=== PATIENT | female | born 1995 | race African-American/Black ===

== ENCOUNTER 2018-12-27 17:30 | Emergency (ER) | payer SELFPAY ==
[~2018-12-27] VITALS: Ht 162.6 cm; Wt 64.4 kg
--- OUTSIDE RECORDS SUMMARY | 2018-12-27 17:33 | XMS REPORT | Clinical Summary ---
Author Author [facility] Address Unknown Phone Unavailable Care Team Providers Care Director Speech Language Name Role Phone System, Provider Not In PCP Unavailable Allergies No Known Allergies Medications End Date Status Medication Sig Dispensed Refills Start Date Active sucralfate (CARAFATE) 1 Take 1 g by 0 gram tablet mouth 4 (four) times daily. Active famotidine (PEPCID) 20 MG Take 20 mg by 0 tablet mouth 2 (two) times daily. 12/26/2018 Discontinued metroNIDAZOLE (FLAGYL) Take 250 mg 0 250 MG tablet by mouth 3 (three) times daily. Active Problems Not on file Encounters Care Team Description Date Type Specialty Anxiety (Primary Dx); History of gastroesophageal reflux (GERD) 12/26/2018 Emergency Emergency Medicine 12/26/2018 Travel after 12/26/2017 Family History Medical History Relation Name Comments No Known Problem Father No Known Problem Mother Relation Name Status Comments Father Mother Social History Date Tobacco Use Types Packs/Day Years Used Passive Smoke Exposure - Never Smoker Smokeless Tobacco: Never Used Alcohol Use Drinks/Week oz/Week Comments No Sex Assigned at Date Recorded Not on file Industry Job Start Date Occupation Not on file Not on file Not on file Travel End Travel History Travel Start No recent travel history available. Last Filed Vital Signs Time Taken Vital Sign Reading 12/26/2018 6:40 PM CDT Blood Pressure 132/83 12/26/2018 6:40 PM CDT Pulse 79 12/26/2018 6:40 PM CDT Temperature 36.5 C (97.7 F) 12/26/2018 6:40 PM CDT Respiratory Rate 18 12/26/2018 6:40 PM CDT Oxygen Saturation 100% - Inhaled Oxygen - Concentration 12/26/2018 6:40 PM CDT Weight 64.4 kg (142 lb) 12/26/2018 6:40 PM CDT Height 134.6 cm (4' 5") 12/26/2018 6:40 PM CDT Body Mass Index 35.54 Plan of Treatment Not on file Procedures Comments Procedure Name Priority Date/Time Associated Diagnosis ECG 12-LEAD STAT 12/26/2018 6:45 PM CDT after 12/26/2017 Results * ECG 12 lead (12/26/2018 6:45 PM CDT) Narrative Performed At Ventricular Rate 70 BPM GE MUSE Atrial Rate 70 BPM P-R Interval 176 ms QRS Duration 88 ms Q-T Interval 400 ms QTC Calculation(Bazett) 432 ms P [place] 33 degrees R [place] 67 degrees T [place] 29 degrees Normal sinus rhythm with sinus arrhythmia Minimal voltage criteria for LVH, may be normal variant Nonspecific T wave abnormalityanterior leads Abnormal ECG No previous ECGs available Confirmed by MD BURGESS YOCHAI ([id number]) on 12/27/2018 5:08:48 AM Procedure Note Interface, External Ris In - 12/27/2018 5:08 AM CDT Ventricular Rate 70 BPM Atrial Rate 70 BPM P-R Interval 176 ms QRS Duration 88 ms Q-T Interval 400 ms QTC Calculation(Bazett) 432 ms P [place] 33 degrees R [place] 67 degrees T [place] 29 degrees Normal sinus rhythm with sinus arrhythmia Minimal voltage criteria for LVH, may be normal variant Nonspecific T wave abnormality anterior leads Abnormal ECG No previous ECGs available Confirmed by MD BURGESS YOCHAI ([id number]) on 12/27/2018 5:08:48 AM Performing Organization Address City/State/Zipcode Phone Number [place] MUSE after 12/26/2017 Insurance Payer Benefit Subscriber ID Type Phone Address Plan / Group MEDICAID - MEDICAID [place] MEDICAID xxxxxxxxx Medicaid [employer] Non-Contra cted Guarantor Name Account Relation to Date of Phone Billing Address Type Patient ANNABELLE BOYD Personal/F Grandmother [phone] [id number] (Home) [place] [address]
--- OUTSIDE RECORDS SUMMARY | 2018-12-27 17:33 | XMS REPORT ---
Author Author [facility] Address Unknown Phone Unavailable Care Team Providers Care Crystalizer Name Role Phone Unavailable Unavailable Problems This patient has no known problems. Allergies, Adverse Reactions, Alerts This patient has no known allergies or adverse reactions. Medications This patient has no known medications.
[2018-12-27] MEDS ORDERED: ALPRAZOLAM 0.5 MG TAB PO ONE (18:15)
--- NOTE | 2018-12-27 18:47 | NUR ---
REPORT TO ROSI NICOLAS ALL QUESTIONS ANSWERED
--- NOTE | 2018-12-27 18:50 | NUR ---
Assumed care of pt. Pt is resting in bed and has no needs at this time and is in NAD, REU
[2018-12-27] MEDS ORDERED: ALPRAZOLAM0.5 MG PO (19:00)
[2018-12-27 19:50] VITALS: BP 138/86
== END 2018-12-27 19:00 | disposition home or self-care (01) ==
LOC: FSED 17:30
DX: F41.1 Generalized anxiety disorder (principal); K21.0 Gastro-esophageal reflux disease with esophagitis
CPT/HCPCS: 99283

== ENCOUNTER 2019-11-18 05:21 | Emergency (ER) | payer SELFPAY ==
[~2019-11-18] VITALS: Ht 172.7 cm; Wt 86.2 kg
[~2019-11-18 05:21] MED LIST: ALPRAZOLAM0.5 MG PO
[2019-11-18] MEDS ORDERED: KETOROLAC TROMETHAMINE 30 MG/ML VIAL IV STA (05:44)
[2019-11-18] MEDS ORDERED: FAMOTIDINE 20 MG/2 ML VIAL IV STA (05:44)
[2019-11-18] MEDS ORDERED: ONDANSETRON HCL INJ 2MG/ML 2ML 2 MG/ML VIAL IV STA (05:44)
--- NOTE | 2019-11-18 06:38 | Diagnostic Imaging Report ---
EXAM: CT Abdomen and Pelvis WITHOUT contrast INDICATION: Abdominal pain, nausea and vomiting. COMPARISON: None. TECHNIQUE: Abdomen and pelvis were scanned utilizing a multidetector helical scanner from the lung base to the pubic symphysis without administration of IV contrast. Absence of intravenous contrast decreases sensitivity for detection of focal lesions and vascular pathology. Coronal and sagittal reformations were obtained. Renal stone protocol was performed. IV CONTRAST: None. ORAL CONTRAST: Water RADIATION DOSE: Total DLP: 477.81 mGy*cm Estimated effective dose: (DLP x 0.015 x size factor) mSv COMPLICATIONS: None FINDINGS: LINES and TUBES: None. LOWER THORAX: Unremarkable HEPATOBILIARY: No focal hepatic lesions. No biliary ductal dilation. GALLBLADDER: No radio-opaque stones or sludge. No wall thickening. SPLEEN: No splenomegaly. PANCREAS: No focal masses or ductal dilatation. ADRENALS: No adrenal nodules KIDNEYS/URETERS: No hydronephrosis. No cystic or solid mass lesions. Punctate hyperdensity in the renal papilla bilaterally suggestive of Alex plaques in/or punctate renal calculi. GI TRACT: No abnormal distention, wall thickening, or evidence of bowel obstruction. Appendix is normal. PELVIC ORGANS/BLADDER: Unremarkable. LYMPH NODES: No lymphadenopathy. VESSELS: Unremarkable. PERITONEUM / RETROPERITONEUM: Trace volume of free fluid in the cul-de-sac. BONES: Unremarkable. SOFT TISSUES: Unremarkable. IMPRESSION: 1. Punctate hyperdensity in the renal papilla bilaterally suggestive of Alex plaques and punctate nonobstructing renal calculi. No hydronephrosis. Signed by: Dr. Kentrell Shea M.D. on 11/18/2019 6:35 AM
== END 2019-11-18 07:13 | disposition home or self-care (01) ==
LOC: FSED 05:21
DX: R10.13 Epigastric pain (principal); R11.2 Nausea with vomiting, unspecified
CPT/HCPCS: 74176; 80053; 81003; 81025; 85025; 99283; J1885; J2405

== ENCOUNTER 2020-01-03 23:07 | Emergency (ER) | payer SELFPAY ==
[~2020-01-03] VITALS: Ht 160 cm; Wt 70.3 kg
[2020-01-03] MEDS ORDERED: ONDANSETRON HCL 4 MG ORAL DISINTEGRATING TAB PO ONE (23:30)
[2020-01-03] MEDS ORDERED: ONDANSETRON HCL 4 MG ORAL DISINTEGRATING TAB ONE (23:42)
[2020-01-03] MEDS ORDERED: PROMETHAZINE HCL (IM) 25 MG/ML VIAL IM ONE (23:45)
--- NOTE | 2020-01-03 23:58 | NUR ---
IM TO R-GLUT WITHOUT DIFF. PT TOLERATED WELL
[2020-01-03] MEDS ORDERED: PROMETHAZINE HCL (IM) 25 MG/ML VIAL ONE (23:59)
[2020-01-04 00:20] VITALS: BP 140/74
== END 2020-01-04 00:20 | disposition home or self-care (01) ==
LOC: FSED 23:07
DX: R10.13 Epigastric pain (principal); R11.2 Nausea with vomiting, unspecified
CPT/HCPCS: 80053; 81003; 81025; 85025; 96372; 99283; J2550; Q0162

== ENCOUNTER 2020-04-04 06:35 | Emergency (ER) | payer SELFPAY ==
[~2020-04-04] VITALS: Ht 160 cm; Wt 70.3 kg
[2020-04-04] MEDS ORDERED: SODIUM CHLORIDE 0.9% 1000ML 1,000 ML IV STA (07:16)
--- NOTE | 2020-04-04 07:23 | Emergency Department Note ---
History of Present Illnes History of Present Illness Chief Complaint: Abdominal Complaints History of Present Illness This is a 24 year old female c/o epigastric pain chest pain for years, getting worse for few days, n/v for 2 days. She was here few months ago, given phenergan, feeling better but she has not f/u for definitive care, taking no meds . Arrival Mode: Car Telephone Directory Deliverer Required: No Radiation: Reports non-radiation Onset quality: gradual Duration (how long): month(s) Progression: worsening Relieving factors: none Exacerbating factors: none Treatments prior to arrival: none Previous service: medications given Past Medical/Family History Physician Review I have reviewed the patient's past medical and family history. Any updates have been documented here. Past Medical History Recent Fever: No Clinical Suspicion of Infectio: No New/Unexplained Change in Ment: No Past Medical History: None Past Surgical History: None Social History Smoking Cessation: Never Smoker Alcohol Use: None Any Illegal Drug Use: No TB Exposure/Symptoms: No Physically hurt or threatened: No Family History Family history of heart diseas: No Other Last Tetanus: unlk Review of Systems Review of Systems Constitutional: Reports no symptoms EENTM: Reports no symptoms Cardiovascular: Reports chest pain Respiratory: Reports no symptoms Gastrointestinal: Reports as per HPI, Reports abdominal pain, Reports nausea, Reports vomiting Genitourinary: Reports no symptoms Musculoskeletal: Reports no symptoms Integumentary: Reports no symptoms Neurological: Reports no symptoms Psychological: Reports no symptoms Endocrine: Reports no symptoms Hematological/Lymphatic: Reports no symptoms Physical Exam Related Data Allergies: Coded Allergies: No Known Allergies (Unverified , 12/27/18) Physical Exam CONSTITUTIONAL Constitutional: Present well-developed, Present well-nourished HENT HENT: Present normocephalic, Present atraumatic, Present oropharynx clear/moist, Present nose normal HENT L/R: Present left ext ear normal, Present right ext ear normal EYES Eyes: Reports PERRL, Reports conjunctivae normal NECK Neck: Present ROM normal PULMONARY Pulmonary: Present effort normal, Present breath sounds normal CARDIOVASCULAR Cardiovascular: Present regular rhythm, Present heart sounds normal, Present capillary refill normal, Present normal rate GASTROINTESTINAL Abdominal: Present soft, Present nontender, Present bowel sounds normal GENITOURINARY Genitourinary: Present exam deferred SKIN Skin: Present warm, Present dry MUSCULOSKELETAL Musculoskeletal: Present ROM normal NEUROLOGICAL Neurological: Present alert, Present oriented x 3, Present no gross motor or sensory deficits PSYCHOLOGICAL Psychological: Present mood/affect normal, Present judgement normal Results Laboratory Lab results reviewed: Yes Laboratory comments wnl Imaging Imaging results reviewed: Yes Imaging Comments no acute Diagnostics Tests Diagnostic test(s) reviewed: Yes Procedures 12 Lead ECG Interpretation ECG Interpretation : ECG: ECG 1 Date: Apr 04, 2020 Time: 07:39 Rhythm: sinus rhythm Ectopy: PJC's QRS axis: normal Clinical Impression: normal ECG Assessment & Plan Medical Decision Making MDM 24 yo AAF has epigastric pain for years, getting worse with n/v, probably has hiatal hernia, need GI f/u Assessment & Plan Final Impression: (1) Nausea & vomiting (2) Abdominal pain (3) Chest pain Depart Disposition: HOME, SELF-halfway Meds Active Scripts Promethazine Hcl (PROMETHAZINE HCL) 25 Mg Tablet, 25 MG PO DAILY, #30 TAB Prov:OLI DIAZ MD 04/04/20 Omeprazole (OMEPRAZOLE) 40 Mg Capsule.dr, 1 TAB PO DAILY, #30 Prov:OLI DIAZ MD 04/04/20 Alprazolam (ALPRAZOLAM) 0.5 Mg Tablet, 0.5 MG PO TID PRN for ANXIETY, #20 TAB 0 Refills Prov:FLACO TURCIOS MD 12/27/18 Medications in the ED Famotidine 20 mg ONCE ONCE IV ; Start 04/04/20 at 07:30; Stop 04/04/20 at 07:31; Status UNV Sodium Chloride 1,000 ml @ 0 mls/hr Q0M STAT IV ; Start 04/04/20 at 07:16; Stop 04/04/20 at 07:18; Status DC OLI DIAZ MD Apr 04, 2020 07:23
[2020-04-04] MEDS ORDERED: ONDANSETRON HCL INJ 2MG/ML 2ML 2 MG/ML VIAL IV ONE (07:30)
[2020-04-04] MEDS ORDERED: PROMETHAZINE 25MG/ NS 50ML (IV) IV ONE (07:30)
[2020-04-04] MEDS ORDERED: FAMOTIDINE 20 MG/2 ML VIAL IV ONE (07:30)
[2020-04-04] MEDS ORDERED: SODIUM CHLORIDE 0.9% 1000ML 1,000 ML ONE (07:38)
--- NOTE | 2020-04-04 07:40 | NUR ---
pt in room vomiting at the time meds give, asking for water, explained to patient that she is NPO r/t vomiting.
[2020-04-04] MEDS ORDERED: PROMETHAZINE HC25 M1 PO (07:50)
[2020-04-04] MEDS ORDERED: OMEPRAZOLE40 MG PO (07:50)
--- NOTE | 2020-04-04 08:40 | Diagnostic Imaging Report ---
EXAMINATION: ABDOMEN COMPLETE - HOPD INDICATION: Abdominal pain, chest pain COMPARISON: CT abdomen and pelvis of 11/18/2019 FINDINGS: LINES/TUBES:None LUNGS:The lungs are well-inflated. No focal consolidation or pulmonary edema. PLEURA:No pleural effusion or pneumothorax. MEDIASTINUM:The cardiomediastinal silhouette appears normal in size and shape. BONES/SOFT TISSUES:No acute osseous injury. ABDOMEN:No free air under the diaphragm. Nonobstructive bowel gas pattern. No acute osseous injury. IMPRESSION: No focal pneumonia or pulmonary edema. Nonobstructive bowel gas pattern. No free air. Signed by: Jaelyn Garcia MD on 04/04/2020 8:37 AM
== END 2020-04-04 09:03 | disposition home or self-care (01) ==
LOC: FSED 06:35
DX: R10.13 Epigastric pain (principal); R07.89 Other chest pain; R11.2 Nausea with vomiting, unspecified
CPT/HCPCS: 74022; 80053; 81003; 81025; 82553; 84484; 85025; 96374; 96376; 99284; J2405; J2550; J7030

== ENCOUNTER 2020-09-02 09:57 | Emergency (ER) | payer OTHER ==
[~2020-09-02] VITALS: Ht 167.6 cm; Wt 65.8 kg
[~2020-09-02 09:57] MED LIST changes: +OMEPRAZOLE40 MG PO; +PROMETHAZINE HC25 M1 PO
[2020-09-02] MEDS ORDERED: SODIUM CHLORIDE 0.9% 1000ML 1,000 ML IV STA (10:08)
[2020-09-02] MEDS ORDERED: SODIUM CHLORIDE FLUSH 10 ML SYR INJ PRN (10:15)
[2020-09-02] MEDS ORDERED: LORAZEPAM INJ 2 MG/ML VIAL IV ONE ×2 (10:15→10:30)
[2020-09-02] MEDS ORDERED: LORAZEPAM INJ 2 MG/ML VIAL ONE (10:16)
--- NOTE | 2020-09-02 10:17 | Emergency Department Note ---
History of Present Illnes History of Present Illness Chief Complaint: anxiety attack(cp/sob) History of Present Illness This is a 24 year old female . Historian: Patient Arrival Mode: Car History limited by: condition of the patient (normal) Field Education Coordinator Required: No Onset (how long ago): hour(s) (2) Location: bilateral Quality: tightness Radiation: Reports non-radiation Severity: severe Onset quality: sudden Duration (how long): hour(s) (2) Timing of current episode: constant Progression: worsening Chronicity: recurrent (typical anxiety attack) Context: Denies recent illness, Denies recent surgery, Denies recent immobilization, Denies recent travel, Denies trauma/injury, Denies new medications, Denies hx of DVT/PE, Denies non-compliance w/ medications Relieving factors: none Exacerbating factors: none Associated symptoms: Reports chest pain, Reports shortness of breath Treatments prior to arrival: none Past Medical/Family History Physician Review I have reviewed the patient's past medical and family history. Any updates have been documented here. Past Medical History Recent Fever: No Clinical Suspicion of Infectio: No New/Unexplained Change in Ment: No Past Medical History: Anxiety Past Surgical History: None Social History Smoking Cessation: Never Smoker Counseling Performed: No Alcohol Use: Social Any Illegal Drug Use: No TB Exposure/Symptoms: No Physically hurt or threatened: No Family History Family history of heart diseas: No Other Last Tetanus: unlk Any Pre-Existing Lines (PICC,: No Is patient up to date on immun: No Review of Systems Review of Systems Constitutional: Reports no symptoms EENTM: Reports no symptoms Cardiovascular: Reports as per HPI Respiratory: Reports as per HPI Gastrointestinal: Reports no symptoms Genitourinary: Reports no symptoms Musculoskeletal: Reports no symptoms Integumentary: Reports no symptoms Neurological: Reports as per HPI, Reports numbness, Reports paresthesia Psychological: Reports no symptoms Endocrine: Reports no symptoms Hematological/Lymphatic: Reports no symptoms Review of other systems: All other systems negative Physical Exam Related Data Allergies: Coded Allergies: No Known Allergies (Unverified , 12/27/18) Vital signs reviewed: Yes Physical Exam CONSTITUTIONAL Constitutional: Present well-developed, Present well-nourished, Present other (+anxious) HENT HENT: Present normocephalic, Present atraumatic, Present mucosae dry, Present nose normal HENT L/R: Present left ext ear normal, Present right ext ear normal EYES Eyes: Reports PERRL, Reports conjunctivae normal NECK Neck: Present ROM normal, Present supple PULMONARY Pulmonary: Present effort normal, Present breath sounds normal CARDIOVASCULAR Cardiovascular: Present regular rhythm, Present heart sounds normal, Present capillary refill normal, Present normal rate GASTROINTESTINAL Abdominal: Present soft, Present nontender, Present bowel sounds normal GENITOURINARY Genitourinary: Present exam deferred SKIN Skin: Present warm, Present dry MUSCULOSKELETAL Musculoskeletal: Present ROM normal NEUROLOGICAL Neurological: Present alert, Present oriented x 3, Present no gross motor or sensory deficits PSYCHOLOGICAL Psychological: Present mood/affect normal, Present judgement normal Results Laboratory Lab results reviewed: Yes Laboratory comments cbc/bmp/lft/d-dimer/cardiac enzymes all normal Imaging Imaging results reviewed: Yes Imaging Comments [place] [address] Patient Name: GARRY AU MR #: [id number] : 1995 Age/Sex: 24/F Req #: [id number] Adm Physician: Ordered by: GULSHAN LANGSTON Report #: [id number] [facility] Room/Bed: Procedure: [id number] HOPD/CXR 1 [facility] Exam Date: 09/02/20 Exam Time: 1047 REPORT STATUS: Signed EXAMINATION: CXR 1 [facility] INDICATION: ^cp/sob ^[id number] ^1047 COMPARISON: Chest x-ray on 04/04/2020. FINDINGS: TUBES and LINES: None. LUNGS: Normal lung volumes. Lungs are clear. No consolidations. PLEURA: No pleural effusion or pneumothorax. HEART AND MEDIASTINUM: The cardiomediastinal silhouette is unremarkable. BONES AND SOFT TISSUES: No acute osseous lesion. Soft tissues are unremarkable. UPPER ABDOMEN: No free air under the diaphragm. IMPRESSION: No acute thoracic radiographic abnormality. Signed by: Christian Hutson MD on 09/02/2020 11:15 AM Dictated By: CHRISTIAN HUTSON MD 14 Transcribed By: ARISTEO on 09/02/201114 COPY TO: GULSHAN LANGSTON~ Procedures 12 Lead ECG Interpretation ECG Interpretation : ECG: ECG 1 Field Education Coordinator: Interpreted by ED physician Date: Sep 02, 2020 Time: 10:15 Prior ECG tracings: reviewed Rhythm: sinus rhythm (nsr with sinus arrhytmia) Rate: normal BPM: 90 QRS axis: normal ST segments normal: Yes T waves normal: Yes Clinical Impression: abnormal ECG Critical Care Time Comments [place] attendant aware overdose risk [id number] Assessment & Plan Medical Decision Making MDM panick attack, acute on chronic chest pain Reassessment Reassessment time: 11:30 Reassessment symptoms resolved Assessment & Plan Final Impression: (1) Panic attack (2) Atypical chest pain (3) Chronic chest pain Depart Disposition: HOME, SELF-retirement Meds Active Scripts Ondansetron (ONDANSETRON ODT) 8 Mg Tab.rapdis, 4 MG PO Q4HR PRN for NAUSEA AND VOMITING, #30 TAB Prov:GULSHAN LANGSTON 09/02/20 Lorazepam (ATIVAN) 2 Mg Tablet, 2 MG PO Q8H PRN for ANXIETY, #10 Prov:GULSHAN LANGSTON 09/02/20 Prednisone (PREDNISONE) 20 Mg Tab, 60 MG PO DAILY PRN for MODERATE PAIN (4-6), #15 TAB take all 3 pills at once Prov:GULSHAN LANGSTON 09/02/20 Promethazine Hcl (PROMETHAZINE HCL) 25 Mg Tablet, 25 MG PO DAILY, #30 TAB Prov:OLI DIAZ MD 04/04/20 Omeprazole (OMEPRAZOLE) 40 Mg Capsule.dr, 1 TAB PO DAILY, #30 Prov:OLI DIAZ MD 04/04/20 Alprazolam (ALPRAZOLAM) 0.5 Mg Tablet, 0.5 MG PO TID PRN for ANXIETY, #20 TAB 0 Refills Prov:FLACO TURCIOS MD 12/27/18 Medications in the ED Sodium Chloride 10 ml PRN PRN INJ IV SITE FLUSH; Start 09/02/20 at 10:15; Stop 10/02/20 at 10:14; Status UNV Lorazepam 2 mg ONCE ONCE IV ; Start 09/02/20 at 10:15; Stop 09/02/20 at 10:16; Status UNV Sodium Chloride 1,000 ml @ 1,000 mls/hr Q1H STAT IV ; Start 09/02/20 at 10:08; Stop 09/02/20 at 11:07; Status UNV Lorazepam 2 mg STK-MED ONCE .ROUTE ; Start 09/02/20 at 10:16; Stop 09/02/20 at 10:11; Status GULSHAN MONTELONGO Sep 02, 2020 10:17
[2020-09-02] MEDS ORDERED: PROMETHAZINE 25MG/ NS 50ML (IV) IV ONE (10:30)
--- NOTE | 2020-09-02 10:44 | NUR ---
PT SHOWED NO RELIEF WITH FIRST DOES ATIVAN, PER ER MD, 2ND DOSE GIVEN, PT DRY HEAVING WELL, PT MEDICATED PER ER MD ORDERS AND ON MONITORS WITH VSS.
[2020-09-02] MEDS ORDERED: PROMETHAZINE HCL (IM) 25 MG/ML VIAL IM ONE (10:49)
--- NOTE | 2020-09-02 11:19 | Diagnostic Imaging Report ---
EXAMINATION: CXR 1 [facility] INDICATION: ^cp/sob ^[id number] ^1047 COMPARISON: Chest x-ray on 04/04/2020. FINDINGS: TUBES and LINES: None. LUNGS: Normal lung volumes. Lungs are clear. No consolidations. PLEURA: No pleural effusion or pneumothorax. HEART AND MEDIASTINUM: The cardiomediastinal silhouette is unremarkable. BONES AND SOFT TISSUES: No acute osseous lesion. Soft tissues are unremarkable. UPPER ABDOMEN: No free air under the diaphragm. IMPRESSION: No acute thoracic radiographic abnormality. Signed by: Abilio Nails MD on 09/02/2020 11:15 AM
[2020-09-02 11:26] LABS: BILIRUBIN,URINE NEGATIVE (NEGATIVE); COLOR,URINE YELLOW (YELLOW); KETONES,URINE 1+ (NEGATIVE); LEUKOCYTE ESTERASE ,URINE NEGATIVE (NEGATIVE); NITRITE,URINE NEGATIVE (NEGATIVE); PROTEIN,URINE DIPSTICK 1+ (NEGATIVE); URINE UROBILINOGEN 0.2 mg/dL (0.2 - 1)
[2020-09-02 11:27] LABS: CLARITY,URINE CLEAR (CLEAR); PREGNANCY TEST, URINE NEGATIVE (NEGATIVE)
[2020-09-02 11:28] LABS: AMPHETAMINES SCREEN,URINE NEGATIVE (NEGATIVE); BENZODIAZEPINES SCREEN,URINE POSITIVE (NEGATIVE); PHENCYCLIDINE SCREEN,URINE NEGATIVE (NEGATIVE)
[2020-09-02 11:47] LABS: BACTERIA,URINE FEW /HPF; EPITHELIAL CELLS,URINE MODERATE /LPF; RBC,URINE 0-5 /HPF (0-5); WBC,URINE (MAN) 0-5 /HPF (0-5)
--- NOTE | 2020-09-02 11:49 | NUR ---
PT AAOX4. AMBULATORY. NOW BREATHING WITH EVEN RESPIRATIONS. WEARING MASK. COOPERATIVE.
[2020-09-02] MEDS ORDERED: ATIVAN2 MG PO (12:20)
[2020-09-02] MEDS ORDERED: PREDNISONE20 MG PO (12:20)
[2020-09-02] MEDS ORDERED: ONDANSETRON ODT8 MG PO (12:35)
== END 2020-09-02 12:57 | disposition home or self-care (01) ==
LOC: FSED 10:19
DX: F41.0 Panic disorder [episodic paroxysmal anxiety] (principal); R07.89 Other chest pain; R94.31 Abnormal electrocardiogram [ECG] [EKG]; F41.9 Anxiety disorder, unspecified
CPT/HCPCS: 71045; 80053; 80307; 81001; 81003; 81025; 84484; 85025; 93005; 99284; J2060; J2550

== ENCOUNTER 2021-05-23 10:56 | Emergency (ER) | payer OTHER ==
[~2021-05-23] VITALS: Ht 162.6 cm; Wt 75.3 kg
[~2021-05-23 10:56] MED LIST changes: +ATIVAN2 MG PO; +ONDANSETRON ODT8 MG PO; +PREDNISONE20 MG PO
[2021-05-23] MEDS ORDERED: KETOROLAC TROMETHAMINE 30 MG/ML VIAL IV STA (12:12)
[2021-05-23] MEDS ORDERED: ONDANSETRON HCL INJ 2MG/ML 2ML 2 MG/ML VIAL ONE (12:34)
[2021-05-23] MEDS ORDERED: KETOROLAC TROMETHAMINE 30 MG/ML VIAL ONE (12:34)
[2021-05-23] MEDS ORDERED: MORPHINE SULFATE INJ 4 MG/ML INJ 1ML IV STA (13:14)
[2021-05-23] MEDS ORDERED: ONDANSETRON HCL INJ 2MG/ML 2ML 2 MG/ML VIAL IV STA (13:17)
[2021-05-23] MEDS ORDERED: SODIUM CHLORIDE 0.9% 50ML 50 ML ONE (13:52)
[2021-05-23] MEDS ORDERED: IOPAMIDOL 370 MG/ML 200 ML INFUS..BTL INJ ONE (13:52)
[2021-05-23] MEDS ORDERED: ONDANSETRON ODT4 MG PO (14:11)
[2021-05-23] MEDS ORDERED: ACETAMINOPHEN-1 EAC3 PO (14:11)
== END 2021-05-23 15:05 | disposition home or self-care (01) ==
LOC: FSED 10:58
DX: R10.33 Periumbilical pain (principal); R50.9 Fever, unspecified; F41.9 Anxiety disorder, unspecified
CPT/HCPCS: 74177; 80053; 81003; 81025; 85025; 96374; 96375; 99284; J1885; J2270; J2405; Q9967

== ENCOUNTER 2021-06-18 05:23 | Emergency (ER) | payer OTHER ==
[~2021-06-18] VITALS: Ht 160 cm; Wt 77.1 kg
[~2021-06-18 05:23] MED LIST changes: +ACETAMINOPHEN-1 EAC3 PO; +ONDANSETRON ODT4 MG PO
[2021-06-18] MEDS ORDERED: LORAZEPAM 0.5 MG TAB PO STA (05:48)
[2021-06-18] MEDS ORDERED: ONDANSETRON ODT4 MG PO (05:51)
[2021-06-18] MEDS ORDERED: ONDANSETRON HCL 4 MG ORAL DISINTEGRATING TAB PO ONE (06:00)
[2021-06-18] MEDS ORDERED: LORAZEPAM 0.5 MG TAB ONE (06:03)
[2021-06-18] MEDS ORDERED: ONDANSETRON HCL 4 MG ORAL DISINTEGRATING TAB ONE (06:03)
== END 2021-06-18 06:29 | disposition home or self-care (01) ==
LOC: FSED 05:33
DX: F41.0 Panic disorder [episodic paroxysmal anxiety] (principal); F41.9 Anxiety disorder, unspecified
CPT/HCPCS: 99283; Q0162

== ENCOUNTER 2021-12-27 11:20 | Emergency (ER) | payer MEDICARE, OTHER ==
[~2021-12-27] VITALS: Ht 160 cm; Wt 81.8 kg
== END 2021-12-27 14:48 | disposition home or self-care (01) ==
LOC: FSED 11:22
DX: O03.9 Complete or unspecified spontaneous abortion without complication (principal)
CPT/HCPCS: 36415; 76801; 76817; 81003; 81025; 84702; 86900; 99284

== ENCOUNTER 2022-12-04 17:45 | Emergency (ER) | payer BC, OTHER ==
[~2022-12-04] VITALS: Ht 160 cm; Wt 104.9 kg
[2022-12-04] MEDS ORDERED: AMOX TR-K CLV1 EAC2 PO (20:04)
[2022-12-04] MEDS ORDERED: BROMFED DM COU118 ML PO (20:05)
[2022-12-04] MEDS ORDERED: OCEAN104 ML INH (20:08)
[2022-12-04] MEDS ORDERED: FIORICET 50-301 EACH PO (20:09)
== END 2022-12-04 20:40 | disposition home or self-care (01) ==
LOC: FSED 18:24
DX: R04.0 Epistaxis (principal); J01.90 Acute sinusitis, unspecified; N92.0 Excessive and frequent menstruation with regular cycle; R51.9 Headache, unspecified; K21.9 Gastro-esophageal reflux disease without esophagitis; F41.9 Anxiety disorder, unspecified; F17.210 Nicotine dependence, cigarettes, uncomplicated
CPT/HCPCS: 81003; 81025; 87400; 99282